=== PATIENT | female | born 1965 | race Native Hawaiian/Other Pacific Islander ===

== ENCOUNTER 2022-04-22 05:10 | Emergency (ER) | payer OTHER ==
[~2022-04-22] VITALS: Ht 170.2 cm; Wt 90.7 kg
[2022-04-22 06:08] LABS: PLATELET COUNT 186 K/uL (152-353)
[2022-04-22 06:18] LABS: POTASSIUM 3.7 mmol/L (3.6-5.2)
[2022-04-22 07:29] VITALS: BP 130/90; TEMP 97.8
== END 2022-04-22 07:29 | disposition home or self-care (01) ==
LOC: ED 05:10
PROVIDERS: Family Medicine
DX: J44.9 Chronic obstructive pulmonary disease, unspecified (principal); N39.0 Urinary tract infection, site not specified; E66.8 Other obesity
CPT/HCPCS: 36415; 80053; 81000; 85027; 87086; 87088; 99283; J2550

== ENCOUNTER 2022-06-20 00:52 | Emergency (ER) | payer OTHER ==
[~2022-06-20] VITALS: Ht 170.2 cm; Wt 90.7 kg
[2022-06-20 00:52] VITALS: TEMP 98.2
[2022-06-20 01:32] LABS: POTASSIUM 3.7 mmol/L (3.6-5.2)
[2022-06-20 01:55] LABS: PLATELET COUNT 172 K/uL (152-353)
[2022-06-20 02:52] VITALS: BP 99/62
== END 2022-06-20 02:52 | disposition home or self-care (01) ==
LOC: ED 00:52
PROVIDERS: Emergency Medicine Emergency Medical Services
DX: J45.909 Unspecified asthma, uncomplicated (principal)
CPT/HCPCS: 80048; 84484; 85027; 93005; 94664; 99283

== ENCOUNTER 2022-08-24 22:39 | Emergency (ER) | payer OTHER ==
[~2022-08-24] VITALS: Ht 170.2 cm; Wt 81.6 kg
[2022-08-24 22:39] VITALS: TEMP 98.3
[2022-08-24 23:27] LABS: PLATELET COUNT 146 K/uL (152-353)
[2022-08-24 23:36] LABS: PARTIAL THROMBOPLASTIN TIME 27.7 SECONDS (23.9-36.7)
[2022-08-25 03:35] LABS: POTASSIUM 4.3 mmol/L (3.6-5.2)
[2022-08-25 04:05] VITALS: BP 130/85
== END 2022-08-25 04:05 | disposition home or self-care (01) ==
LOC: ED 22:39
PROVIDERS: Family Medicine
DX: J45.901 Unspecified asthma with (acute) exacerbation (principal); E11.9 Type 2 diabetes mellitus without complications; Z91.199 Patient's noncompliance with other medical treatment and regimen due to unspecified reason; R06.02 Shortness of breath
CPT/HCPCS: 80048; 82550; 83605; 83880; 84484; 85027; 85610; 85730; 93005; 94664; 96374; 99284; J2930; J3475

== ENCOUNTER 2022-09-12 13:22 | Emergency (ER) | payer OTHER ==
[~2022-09-12] VITALS: Ht 170.2 cm; Wt 72.6 kg
[2022-09-12 13:22] VITALS: TEMP 97.2
[2022-09-12 13:36] LABS: PLATELET COUNT 194 K/uL (152-353)
[2022-09-12 13:58] LABS: POTASSIUM 3.9 mmol/L (3.6-5.2)
[2022-09-12 15:45] VITALS: BP 118/82
== END 2022-09-12 15:50 | disposition home or self-care (01) ==
LOC: ED 13:22
PROVIDERS: Family Medicine
DX: J45.909 Unspecified asthma, uncomplicated (principal); R73.9 Hyperglycemia, unspecified
CPT/HCPCS: 80053; 82805; 85027; 94664; 96361; 96374; 99284; J1815

== ENCOUNTER 2022-11-04 02:43 | Emergency (ER) | payer OTHER ==
[~2022-11-04] VITALS: Ht 170.2 cm; Wt 90.7 kg
[2022-11-04 02:45] VITALS: TEMP 97.2
[2022-11-04 03:40] LABS: PLATELET COUNT 177 K/uL (152-353)
[2022-11-04 03:55] LABS: POTASSIUM 3.9 mmol/L (3.6-5.2)
[2022-11-04 06:30] VITALS: BP 119/74
== END 2022-11-04 06:30 | disposition home or self-care (01) ==
LOC: ED 02:43
PROVIDERS: Family Medicine
DX: R42 Dizziness and giddiness (principal); I95.1 Orthostatic hypotension
CPT/HCPCS: 36415; 80053; 81002; 85027; 96361; 96365; 99284